=== PATIENT | female | born 1990 ===

== ENCOUNTER 2017-02-19 13:21 | Inpatient (IN) | payer OTHER ==
[2016-03-26 16:42] VITALS: BMI 27.0
[2017-02-19] MEDS ORDERED: Lactated Ringer's 1,000 ML IV SCH ×2 (13:45→14:00)
[2017-02-19] MEDS ORDERED: Penicillin G Potassium 5 MU in Dextrose 5% In Water 50 ML IV STA (14:18)
[2017-02-19] MEDS ORDERED: Penicillin G 5 Million Unit Vial IVPB ONE (14:21)
--- NOTE | 2017-02-19 14:24 | OBHP ---
Datetime: 02/19/2017 13:42 IP Adm Impression: Term, intrauterine ; Active labor; Intact Membranes IP Admit Plan: Admit to unit; Initiate labor protocol Admit Comment, IP Provider: at 38+weeks came with c/o ctxs started last night, q5 min , 06/22,no vb, lof,+fm obhx 1 x pmh den med pnv psh inguinal hernia soh denies ve 2-/-2 a/p at 38+weeks in labor admit to l_d npo/ivf cont eileen and efm pain manageme anticipate Pelvic Type - PN: Adequate Extremities - PN: Normal Abdomen - PN: Normal Back - PN: Normal Breast - PN: Normal Lungs - PN: Normal Heart - PN: Normal Thyroid - PN: Normal Neurologic - PN: Normal HEENT - PN: Normal General - PN: Normal FHR - Baseline A Provider: 120 Contraction Comments Provider: q1-4 Comments, ACOG Physical Exam: gravid,non tender ve /-2 IP Hx Assessment: The History has been Reviewed and is Current EGA AdmitDate IP: 38.5 Vital Signs Provider: Reviewed; Within Normal Limits IP Chief Complaint: Uterine contractions NICHD Variability Prov Fetus A: Moderate 6-25bpm NICHD Accel Fetus A IP Provider: 15X15 FHR Category Provider Fetus A: Category I Dilatation, Provider: 3 Effacement, Provider: 70 Station, Provider: -2 Genitourinary Exam: Normal DTRs - PN: Normal
[2017-02-19 14:52] LABS: BASO % 0.3 % (0.0-2.0); EOS % 0.3 % (0.0-4.0); LYMPH % 28.2 % (20.0-40.0); MEAN CELL VOLUME 82.3 fL (81.0-99.0); MEAN CORPUSCULAR HEMOGLOBIN 26.1 pg (27.0-31.0); MEAN CORPUSCULAR HGB CONC 31.7 g/dL (33.0-37.0); MONO # 0.7 K/uL (0.0-0.8); MONO % 6.5 % (0.0-10.0); RED CELL DISTRIBUTION WIDTH 14.8 % (11.5-14.5); WHITE BLOOD COUNT 10.6 K/uL (4.8-10.8)
[2017-02-19 15:05] LABS: URINE BACTERIA RARE (<OCC); URINE BILIRUBIN NEGATIVE (NEGATIVE); URINE BLOOD NEGATIVE (NEGATIVE); URINE COLOR Yellow (YELLOW); URINE GLUCOSE (UA) NORMAL (Normal); URINE KETONE 1+ mg/dL (NEGATIVE); URINE LEUKOCYTE ESTERASE NEG Leu/uL (Negative); URINE PROTEIN NEGATIVE (NEGATIVE); URINE UROBILINOGEN NORMAL mg/dL (0.2-1.0); WBC URINE 3 /hpf (0-5)
[2017-02-19] MEDS ORDERED: Oxytocin 20 units in LR 2,000 ML IV ONE (15:17)
[2017-02-19] MEDS ORDERED: Lidocaine 2% Inj (20ml) ONE (15:18)
[2017-02-19 15:19] LABS: ALKALINE PHOSPHATASE 202 U/L (38-126); ALT/SGPT 24 U/L (9-52); AST/SGOT 19 U/L (14-36); BILIRUBIN,TOTAL 0.8 mg/dL (0.2-1.3); BLOOD UREA NITROGEN 3 mg/dL (7-17); CALCIUM 8.8 mg/dl (8.6-10.4); CARBON DIOXIDE 18 mmol/L (22-30); CHLORIDE 104 mmol/L (98-107); GFR AFRICAN-AMERICAN > 60; GLUCOSE,RANDOM 70 mg/dL (65-105); POTASSIUM 3.5 mmol/L (3.6-5.2); SODIUM 133 mmol/L (132-148); TOTAL PROTEIN 6.9 g/dL (6.3-8.3)
--- NOTE | 2017-02-19 15:32 | OBPN ---
Datetime: 02/19/2017 15:29 IP Procedures Other: srom IP Progress Impression: Normal progression of labor IP Procedures: Sterile Vag Exam IP Progress Plan: Continue present management Contraction Comments Provider: q1-4 FHR - Baseline A Provider: 130 IP Progress Note Comment: pt was examined at bed side ve fd/100/0 srom clear anticupate Vital Signs Provider: Reviewed; Within Normal Limits NICHD Accel Fetus A IP Provider: 15X15 FHR Category Provider Fetus A: Category I NICHD Variability Prov Fetus A: Moderate 6-25bpm Dilatation, Provider: 10 Effacement, Provider: 100 Station, Provider: 0 Datetime: 02/19/2017 13:42 IP Informed Consent Obtain: Vaginal Delivery
--- NOTE | 2017-02-19 15:34 | OBDS ---
MATERNAL INFORMATION Estimated Blood Loss (ml): 300 Provider Comments: baby delived in peace. endometrum clean no com meconium light no com LABOR SUMMARY EDC: 02/28/2017 00:00 VAGINAL DELIVERY Laceration Extension: First Degree Laceration Type: Perineal Laceration Repair Note: repaired Sponge Count Correct: Yes Sharps Count Correct: Yes BABY A INFORMATION Forceps: N/A Vacuum Extraction: N/A Shoulder Dystocia : No PRESENTATION/POSITION BABY A Presentation: Cephalic Cephalic Presentation: Vertex Vertex Position: Left Occipital Anterior Breech Presentation: N/A CORD INFORMATION BABY A Nuchal Cord : N/A
[2017-02-19] MEDS ORDERED: OXYTOCIN IV SCH (15:45)
[2017-02-19] MEDS ORDERED: Oxycodone/Acetaminophen 5/325 mg Tab ONE (15:58)
[2017-02-19] MEDS: Oxycodone/Acetaminophen 5/325 mg Tab PO PRN (15:58)
[2017-02-20 06:40] LABS: MEAN CELL VOLUME 81.5 fL (81.0-99.0); MEAN CORPUSCULAR HEMOGLOBIN 26.1 pg (27.0-31.0); MEAN CORPUSCULAR HGB CONC 32.1 g/dL (33.0-37.0); RED CELL DISTRIBUTION WIDTH 15.1 % (11.5-14.5); WHITE BLOOD COUNT 10.8 K/uL (4.8-10.8)
[2017-02-20 06:52] LABS: CHLORIDE 101 mmol/L (98-107); SODIUM 130 mmol/L (132-148)
[2017-02-20 06:53] LABS: POTASSIUM 3.7 mmol/L (3.6-5.2)
[2017-02-20 06:55] LABS: ALB/GLOB RATIO 0.8 (1.0-2.1); ALKALINE PHOSPHATASE 122 U/L (38-126); ALT/SGPT 22 U/L (9-52); AST/SGOT 19 U/L (14-36); BILIRUBIN,TOTAL 0.4 mg/dL (0.2-1.3); BLOOD UREA NITROGEN 7 mg/dL (7-17); CARBON DIOXIDE 26 mmol/L (22-30); GFR AFRICAN-AMERICAN > 60; GLUCOSE,RANDOM 84 mg/dL (65-105); TOTAL PROTEIN 5.1 g/dL (6.3-8.3)
[2017-02-20 06:56] LABS: CALCIUM 8.8 mg/dl (8.6-10.4)
--- NOTE | 2017-02-20 11:31 | OBPPN ---
Datetime: 02/20/2017 11:11 PP Pain Prov: Within normal limits PP Nausea Prov: Denies PP Flatus Prov: Yes PP BM Prov: Yes PP Heart Prov: Normal PP Lungs Prov: Normal PP Abdomen/Uterus Prov: Normal PP Lochia Prov: Normal PP Vulva/Perineum Prov: Normal PP CVA Tenderness Prov: Normal PP Extremities Prov: Normal PP C/S Incision Prov: Not Applicable PP Progress Prov: Normal PP Impression Prov: Normal progression PP Plan Prov: Continue present management PP Progress Note Prov: S-patient states that her pain is well controlled.she is tolerating regular d iet.ambulating and voiding without difficulty.passing faltus O-VSS afebrile Fundus firm and below umbilicus Extremities no calf tenderness A/P Patient s/p vaginal delivery ppd 1 doing well -continue routine post care Vital Signs Provider PP: Reviewed
[2017-02-20] MEDS: Oxycodone/Acetaminophen 5/325 mg Tab PO PRN (21:28)
[2017-02-21 00:06] VITALS: BP 121/72; PULSE 92; RESP 20; TEMP 97; O2SAT 100
[2017-02-21 08:39] LABS: BASO # 0.1 K/uL (0.0-0.2); BASO % 0.7 % (0.0-2.0); EOS # 0.1 K/uL (0.0-0.7); HEMATOCRIT 29.7 % (34.0-47.0); LYMPH # 2.8 K/uL (1.0-4.3); LYMPH % 29.6 % (20.0-40.0); MEAN CELL VOLUME 82.3 fL (81.0-99.0); MEAN CORPUSCULAR HEMOGLOBIN 25.9 pg (27.0-31.0); MEAN CORPUSCULAR HGB CONC 31.5 g/dL (33.0-37.0); MEAN PLATELET VOLUME 9.6 fL (7.2-11.7); MONO # 0.5 K/uL (0.0-0.8); MONO % 5.5 % (0.0-10.0); RED CELL DISTRIBUTION WIDTH 15.1 % (11.5-14.5); WHITE BLOOD COUNT 9.4 K/uL (4.8-10.8)
--- NOTE | 2017-02-21 09:58 | CP.PCM.DIS ---
<Jon Manuel - Last Filed: 02/21/17 09:52> Provider - Provider Date of Admission: 02/19/17 13:43 Attending physician: Geoff Dhillon MD Time Spent in preparation of Discharge (in minutes): 40 Diagnosis - Discharge Diagnosis (1) Normal vaginal delivery Status: Resolved (2) Status: Resolved Hospital Course - Lab Results Lab Results: Most Recent Lab Values WBC 9.4 K/uL (4.8-10.8) 02/21/17 08:32 RBC 3.62 Mil/uL (3.80-5.20) L 02/21/17 08:32 Hgb 9.4 g/dL (11.0-16.0) L 02/21/17 08:32 Hct 29.7 % (34.0-47.0) L 02/21/17 08:32 MCV 82.3 fL (81.0-99.0) 02/21/17 08:32 MCH 25.9 pg (27.0-31.0) L 02/21/17 08:32 MCHC 31.5 g/dL (33.0-37.0) L 02/21/17 08:32 RDW 15.1 % (11.5-14.5) H 02/21/17 08:32 Plt Count 220 K/uL (130-400) 02/21/17 08:32 MPV 9.6 fL (7.2-11.7) 02/21/17 08:32 Neut % (Auto) 63.2 % (50.0-75.0) 02/21/17 08:32 Lymph % (Auto) 29.6 % (20.0-40.0) 02/21/17 08:32 Jerome % (Auto) 5.5 % (0.0-10.0) 02/21/17 08:32 Eos % (Auto) 1.0 % (0.0-4.0) 02/21/17 08:32 Baso % (Auto) 0.7 % (0.0-2.0) 02/21/17 08:32 Neut # 6.0 K/uL (1.8-7.0) 02/21/17 08:32 Lymph # 2.8 K/uL (1.0-4.3) 02/21/17 08:32 Jerome # 0.5 K/uL (0.0-0.8) 02/21/17 08:32 Eos # 0.1 K/uL (0.0-0.7) 02/21/17 08:32 Baso # 0.1 K/uL (0.0-0.2) 02/21/17 08:32 Sodium 130 mmol/L (132-148) L 02/20/17 06:22 Potassium 3.7 mmol/L (3.6-5.2) 02/20/17 06:22 Chloride 101 mmol/L (98-107) 02/20/17 06:22 Carbon Dioxide 26 mmol/L (22-30) 02/20/17 06:22 Anion Gap 7 (10-20) L 02/20/17 06:22 BUN 7 mg/dL (7-17) 02/20/17 06:22 Creatinine 0.5 MG/DL (0.7-1.2) L 02/20/17 06:22 Est GFR ( Amer) > 60 02/20/17 06:22 Est GFR (Non-Af Amer) > 60 02/20/17 06:22 Random Glucose 84 mg/dL (65-105) 02/20/17 06:22 Calcium 8.8 mg/dl (8.6-10.4) 02/20/17 06:22 Total Bilirubin 0.4 mg/dL (0.2-1.3) 02/20/17 06:22 AST 19 U/L (14-36) 02/20/17 06:22 ALT 22 U/L (9-52) 02/20/17 06:22 Alkaline Phosphatase 122 U/L (38-126) 02/20/17 06:22 Total Protein 5.1 g/dL (6.3-8.3) L 02/20/17 06:22 Albumin 2.3 g/dL (3.5-5.0) L D 02/20/17 06:22 Globulin 2.8 gm/dL (2.2-3.9) 02/20/17 06:22 Albumin/Globulin Ratio 0.8 (1.0-2.1) L 02/20/17 06:22 Urine Color Yellow (YELLOW) 02/19/17 14:44 Urine Clarity Clear (Clear) 02/19/17 14:44 Urine pH 6.0 (5.0-8.0) 02/19/17 14:44 Ur Specific [place] 1.009 (1.003-1.030) 02/19/17 14:44 Urine Protein Negative mg/dL (NEGATIVE) 02/19/17 14:44 Urine Glucose (UA) Normal mg/dL (Normal) 02/19/17 14:44 Urine Ketones 1+ mg/dL (NEGATIVE) H 02/19/17 14:44 Urine Blood Negative (NEGATIVE) 02/19/17 14:44 Urine Nitrate Negative (NEGATIVE) 02/19/17 14:44 Urine Bilirubin Negative (NEGATIVE) 02/19/17 14:44 Urine Urobilinogen Normal mg/dL (0.2-1.0) 02/19/17 14:44 Ur Leukocyte Esterase Neg Pedro/uL (Negative) 02/19/17 14:44 Urine WBC (Auto) 3 /hpf (0-5) 02/19/17 14:44 Ur Squamous Epith Cells 2 /hpf (0-5) 02/19/17 14:44 Urine Bacteria Rare (<OCC) 02/19/17 14:44 Urine Opiates Screen Negative (NEGATIVE) 02/19/17 16:11 Urine Methadone Screen Negative (NEGATIVE) 02/19/17 16:11 Ur Barbiturates Screen Negative (NEGATIVE) 02/19/17 16:11 Ur Phencyclidine Scrn Negative (NEGATIVE) 02/19/17 16:11 Ur Amphetamines Screen Negative (NEGATIVE) 02/19/17 16:11 U Benzodiazepines Scrn Negative (NEGATIVE) 02/19/17 16:11 U Oth Cocaine Metabols Negative (NEGATIVE) 02/19/17 16:11 U Cannabinoids Screen Negative (NEGATIVE) 02/19/17 16:11 RPR Nonreactive (NONREACTIVE) 02/19/17 15:34 HIV 1&2 Antibody Screen Negative (NEGATIVE) 02/19/17 14:44 Blood Type B POSITIVE 02/19/17 14:44 Antibody Screen Negative 02/19/17 14:44 - Hospital Course Hospital Course: This is a 26 year old female who presented at 38+ weeks gestation with contractions every 5 minutes. The patient delivered a baby girl on 02/19/17. The mother tolerated the delivery well and her pain is controlled post delivery day 2. The patient has breast fed her child to this point. The patient is mildly anemic on her AM CBC, however improved from previous day. Scripts for vitamins and iron supplementation have been provided on discharge. The patient progressed will during the post delivery time period. The discharge plan and follow ups were extensively discussed with the patient who verbalized complete understanding and agreement with the plan and follow up plan. The patient's medical condition was also discussed and complete understanding was again verbalized. At this time, after discussion of all issues , the patient was deemed medically fit for discharge - Date & Time of H&P Date of H&P: 02/19/17 Time of H&P: 14:26 Discharge Exam - Head Exam Head Exam: ATRAUMATIC, NORMAL INSPECTION, NORMOCEPHALIC - Eye Exam Eye Exam: EOMI, Normal appearance Pupil Exam: NORMAL ACCOMODATION - ENT Exam ENT Exam: Mucous Membranes Moist - Neck Exam Neck exam: Full Rom, Normal Inspection - Respiratory Exam Respiratory Exam: Clear to PA & Lateral, NORMAL BREATHING PATTERN. absent: Decreased Breath Sounds, Rales, Rhonchi, Wheezes, Respiratory Distress, Stridor - Cardiovascular Exam Cardiovascular Exam: REGULAR RHYTHM, RRR, +S1, +S2. absent: Diastolic murmur, Systolic Murmur - GI/Abdominal Exam GI & Abdominal Exam: Normal Bowel Sounds, Soft, Tenderness. absent: Distended, Guarding Additional comments: Uterine Fundus 3FB below the umbilicus - Extremities Exam Extremities exam: normal capillary refill, normal inspection, pedal pulses present - Neurological Exam Neurological exam: Alert, CN II-XII Intact, Normal Gait, Oriented x3 - Skin Skin Exam: Dry, Intact, Normal Color, Warm Discharge Plan - Discharge Medications Prescriptions: Docusate Sodium/Ferrous Fumara [Kimo-Sequels 100 mg -150 mg] 1 tab PO DAILY # 40 tab oxyCODONE/Acetaminophen [Percocet 5/325 mg Tab] 1 tab PO DAILY #4 tab Vit No.124/Iron/Folic [ Vitamin Tablet] 1 each PO DAILY #40 tablet - Follow Up Plan Condition: GOOD Disposition: HOME/ ROUTINE Patient education suggested?: Yes Instructions: Iron Supplements (By mouth), Vitamins (By mouth), Perineal Care (DC), Caring for Your Baby (DC), Bleeding ( DC), Vaginal Delivery (GEN), Your [place]'s Appearance (DC) Additional Instructions: 1.) Please take iron supplementation daily 2.) Please take vitamin daily 3.) Follow up with OBGYN 4.) Follow up with PMD 5.) If concerning symptoms occur, please return to the ED for evaluation <Orin Garcia Sima - Last Filed: 02/26/17 11:16> Provider - Provider Date of Admission: 02/19/17 13:43 Attending physician: Geoff Dhillon MD Hospital Course - Lab Results Lab Results: Most Recent Lab Values WBC 9.4 K/uL (4.8-10.8) 02/21/17 08:32 RBC 3.62 Mil/uL (3.80-5.20) L 02/21/17 08:32 Hgb 9.4 g/dL (11.0-16.0) L 02/21/17 08:32 Hct 29.7 % (34.0-47.0) L 02/21/17 08:32 MCV 82.3 fL (81.0-99.0) 02/21/17 08:32 MCH 25.9 pg (27.0-31.0) L 02/21/17 08:32 MCHC 31.5 g/dL (33.0-37.0) L 02/21/17 08:32 RDW 15.1 % (11.5-14.5) H 02/21/17 08:32 Plt Count 220 K/uL (130-400) 02/21/17 08:32 MPV 9.6 fL (7.2-11.7) 02/21/17 08:32 Neut % (Auto) 63.2 % (50.0-75.0) 02/21/17 08:32 Lymph % (Auto) 29.6 % (20.0-40.0) 02/21/17 08:32 Jerome % (Auto) 5.5 % (0.0-10.0) 02/21/17 08:32 Eos % (Auto) 1.0 % (0.0-4.0) 02/21/17 08:32 Baso % (Auto) 0.7 % (0.0-2.0) 02/21/17 08:32 Neut # 6.0 K/uL (1.8-7.0) 02/21/17 08:32 Lymph # 2.8 K/uL (1.0-4.3) 02/21/17 08:32 Jerome # 0.5 K/uL (0.0-0.8) 02/21/17 08:32 Eos # 0.1 K/uL (0.0-0.7) 02/21/17 08:32 Baso # 0.1 K/uL (0.0-0.2) 02/21/17 08:32 Sodium 130 mmol/L (132-148) L 02/20/17 06:22 Potassium 3.7 mmol/L (3.6-5.2) 02/20/17 06:22 Chloride 101 mmol/L (98-107) 02/20/17 06:22 Carbon Dioxide 26 mmol/L (22-30) 02/20/17 06:22 Anion Gap 7 (10-20) L 02/20/17 06:22 BUN 7 mg/dL (7-17) 02/20/17 06:22 Creatinine 0.5 MG/DL (0.7-1.2) L 02/20/17 06:22 Est GFR ( Amer) > 60 02/20/17 06:22 Est GFR (Non-Af Amer) > 60 02/20/17 06:22 Random Glucose 84 mg/dL (65-105) 02/20/17 06:22 Calcium 8.8 mg/dl (8.6-10.4) 02/20/17 06:22 Total Bilirubin 0.4 mg/dL (0.2-1.3) 02/20/17 06:22 AST 19 U/L (14-36) 02/20/17 06:22 ALT 22 U/L (9-52) 02/20/17 06:22 Alkaline Phosphatase 122 U/L (38-126) 02/20/17 06:22 Total Protein 5.1 g/dL (6.3-8.3) L 02/20/17 06:22 Albumin 2.3 g/dL (3.5-5.0) L D 02/20/17 06:22 Globulin 2.8 gm/dL (2.2-3.9) 02/20/17 06:22 Albumin/Globulin Ratio 0.8 (1.0-2.1) L 02/20/17 06:22 Urine Color Yellow (YELLOW) 02/19/17 14:44 Urine Clarity Clear (Clear) 02/19/17 14:44 Urine pH 6.0 (5.0-8.0) 02/19/17 14:44 Ur Specific [place] 1.009 (1.003-1.030) 02/19/17 14:44 Urine Protein Negative mg/dL (NEGATIVE) 02/19/17 14:44 Urine Glucose (UA) Normal mg/dL (Normal) 02/19/17 14:44 Urine Ketones 1+ mg/dL (NEGATIVE) H 02/19/17 14:44 Urine Blood Negative (NEGATIVE) 02/19/17 14:44 Urine Nitrate Negative (NEGATIVE) 02/19/17 14:44 Urine Bilirubin Negative (NEGATIVE) 02/19/17 14:44 Urine Urobilinogen Normal mg/dL (0.2-1.0) 02/19/17 14:44 Ur Leukocyte Esterase Neg Pedro/uL (Negative) 02/19/17 14:44 Urine WBC (Auto) 3 /hpf (0-5) 02/19/17 14:44 Ur Squamous Epith Cells 2 /hpf (0-5) 02/19/17 14:44 Urine Bacteria Rare (<OCC) 02/19/17 14:44 Urine Opiates Screen Negative (NEGATIVE) 02/19/17 16:11 Urine Methadone Screen Negative (NEGATIVE) 02/19/17 16:11 Ur Barbiturates Screen Negative (NEGATIVE) 02/19/17 16:11 Ur Phencyclidine Scrn Negative (NEGATIVE) 02/19/17 16:11 Ur Amphetamines Screen Negative (NEGATIVE) 02/19/17 16:11 U Benzodiazepines Scrn Negative (NEGATIVE) 02/19/17 16:11 U Oth Cocaine Metabols Negative (NEGATIVE) 02/19/17 16:11 U Cannabinoids Screen Negative (NEGATIVE) 02/19/17 16:11 RPR Nonreactive (NONREACTIVE) 02/19/17 15:34 HIV 1&2 Antibody Screen Negative (NEGATIVE) 02/19/17 14:44 Blood Type B POSITIVE 02/19/17 14:44 Antibody Screen Negative 02/19/17 14:44 Attending/Attestation - Attestation I have personally seen and examined this patient.: Yes I have fully participated in the care of the patient.: Yes I have reviewed all pertinent clinical information, including history, physical exam and plan: Yes
--- NOTE | 2017-02-21 22:27 | OBPPN ---
Datetime: 02/21/2017 22:01 PP Pain Prov: Within normal limits PP Nausea Prov: Denies PP Flatus Prov: Yes PP BM Prov: No PP Breasts Prov: Normal PP Heart Prov: Normal PP Lungs Prov: Normal PP Abdomen/Uterus Prov: Normal PP Lochia Prov: Normal PP Vulva/Perineum Prov: Not Done PP CVA Tenderness Prov: Normal PP Extremities Prov: Normal PP C/S Incision Prov: Not Applicable PP Progress Prov: Normal PP Comments Phys Exam Prov: Skin: warm, dry, intact Abdomen: Obese. Soft, non tender. Fundus firm, 18 weeks, mobile. Mild lochia rubra Extremities: no calf tenderness. Full ORM All other systems reviewed and are negative PP Impression Prov: Normal progression PP Plan Prov: Discharge PP Progress Note Prov: Patient was seen and evalauted approximately 080 0hors; received in room 455; . Reports uterine cramps. Denies nausea, vomiting, chest pain, palpitations, SOB. P.E.: as above. Obese, in NAD. Awake, alert, oriented to time, person and place - PPD#1 H/H 8.3/26. Rh(+) Assessment: PPD#2, 26 yo P2, S/P . Anemia - asymptomatic; hemodynamically stable. Desires IUD f or contraception. Clinically stable. Plan: 1) CBC now 2) Anticipate Discharge home, after CBC resulted Addendum: - H/H 9.4/29.7 Impression: stable and improved H/H. Patient is clinically stable Plan: 1) discharge home 2) See full discharge instructions Vital Signs Provider PP: Reviewed
--- NOTE | 2017-02-21 22:38 | OBDCSUM ---
Datetime: 02/21/2017 12:21 Discharged to, Provider: Home Follow up at, Provider: [facility] Disch Instr Activity: Normal activity; May be up to bathroom; May be up for meals; May Shower Disch Instr Diet: Regular Discharge Diagnosis, Provider: Term Delivered Discharge Time: 02/21/2017 14:00 Follow up in weeks, Provider: 03/04/17 Contraception discussed, Prov: Yes Disch Activity Restrictions: No exercising; No lifting; No driving; No sexual activity; Nothing in v agina - Jenkins, tampons, douche Discharge Diagnosis Prov Other: Anemia Contraception counselling Contraception after Delivery: IUD
== END 2017-02-21 15:45 | disposition home or self-care (01) | DRG 373 ==
LOC: C.EROB 13:21 → C.4D 13:43 → C.4M 18:06
PROVIDERS: ADMIT Obstetrics & Gynecology; ATTEND Obstetrics & Gynecology
PROC: 0HQ9XZZ Repair Perineum Skin, External Approach (ICD-10-PCS; principal; 2017-02-19)
PROC: 10E0XZZ Delivery of Products of Conception, External Approach (ICD-10-PCS; 2017-02-19)
DX: O99.02 Anemia complicating childbirth (principal); D64.89 Other specified anemias; O70.0 First degree perineal laceration during delivery; Z3A.38 38 weeks gestation of pregnancy; Z37.0 Single live birth

== ENCOUNTER 2017-10-13 22:03 | Emergency (ER) | payer SELFPAY ==
[2017-10-13 22:03] VITALS: BMI 27.0
[2017-10-13 22:19] VITALS: TEMP 98.6
--- NOTE | 2017-10-13 23:20 | C.PDOC ---
History Of Present Illness 27 year old female, whose PMHx includes recurrent tonsillitis, presents to the ED for evaluation of a possible infection. Patient has noted white patches to her bilateral tonsils for the past week. She denies fever, chills, cough, difficulty breathing. Time Seen by Provider: 10/13/17 22:37 Chief Complaint (Nursing): ENT Problem History Per: Patient History/Exam Limitations: None Onset/Duration Of Symptoms: Days (1 week) Current Symptoms Are (Timing): Still Present Past Medical History Reviewed: Historical Data, Nursing Documentation, Vital Signs Vital Signs: Last Vital Signs Temp 98.6 F 10/13/17 22:12 Pulse 75 10/13/17 23:29 Resp 18 10/13/17 23:29 BP 124/71 10/13/17 23:29 Pulse Ox 98 10/14/17 01:18 - Medical History PMH: No Chronic Diseases Surgical History: No Surg Hx - [facility] Procedures DELIVERY OF PRODUCTS OF CONCEPTION, EXTERNAL APPROACH (02/19/17) DIVISION OF FEMALE PERINEUM, EXTERNAL APPROACH (08/08/15) INTRODUCTION OF SERUM/TOX/VACCINE INTO MUSCLE, PERC APPROACH (08/08/15) REPAIR PERINEUM MUSCLE, OPEN APPROACH (08/08/15) REPAIR PERINEUM SKIN, EXTERNAL APPROACH (02/19/17) Family History: States: Unknown Family Hx - Social History Hx Tobacco Use: No Hx Alcohol Use: No Hx Substance Use: No - Immunization History Hx Tetanus Toxoid Vaccination: No Hx Influenza Vaccination: Yes Hx Pneumococcal Vaccination: No Review Of Systems Constitutional: Negative for: Fever, Chills ENT: Positive for: Other (white patches on tonsils ) Respiratory: Negative for: Cough, Other (difficulty breathing ) Physical Exam - Physical Exam Appears: Non-toxic, No Acute Distress Skin: Normal Color, Warm, Dry Head: Atraumatic, Normacephalic Eye(s): bilateral: Normal Inspection Ear(s): Bilateral: Normal Nose: Normal, No Discharge Oral Mucosa: Moist Throat: No Erythema, Exudate (bilateral, tonsillar) Neck: Supple Chest: Symmetrical, No Deformity, No Tenderness Cardiovascular: Rhythm Regular, No Murmur Respiratory: Normal Breath Sounds, No Rales, No Rhonchi, No Wheezing Neurological/Psych: Oriented x3, Normal Speech, Normal Cognition ED Course And Treatment O2 Sat by Pulse Oximetry: 98 (on RA) Pulse Ox Interpretation: Normal Progress Note: On reassessment, patient is resting comfortably, remains afebrile and is showing no signs of distress. Patient is stable for discharge and is advised to follow up with her PMD within 1-2 days for further evaluation and/or return to the ED if symptoms persist or worsen. Disposition Counseled Patient/Family Regarding: Diagnosis, Need For Followup, Rx Given - Disposition Disposition: HOME/ ROUTINE Disposition Time: 23:17 Condition: STABLE Additional Instructions: Please follow up with MD Increase PO fluids Gargle with salt water Return to ER if worse Prescriptions: Ibuprofen [Motrin] 600 mg PO Q6H #20 tab Penicillin VK [Penicillin VK Tab] 500 mg PO Q6H #28 tab Instructions: Tonsillitis (ED) Forms: [employer] [facility] ([place]ian), Work Excuse - Clinical Impression Clinical Impression: Exudative tonsillitis - PA / COMPLIANCE CLERK / Resident Statement MD/DO has reviewed & agrees with the documentation as recorded. - Scribe Statement The provider has reviewed the documentation as recorded by the Scribe (Faby Gil) All medical record entries made by the Scribe were at my direction and personally dictated by me. I have reviewed the chart and agree that the record accurately reflects my personal performance of the history, physical exam, medical decision making, and the department course for this patient. I have also personally directed, reviewed, and agree with the discharge instructions and disposition.
[2017-10-13 23:33] VITALS: BP 124/71; PULSE 75; RESP 18
[2017-10-14 01:15] VITALS: O2SAT 98
== END 2017-10-13 23:58 | disposition home or self-care (01) ==
LOC: C.ER 22:03
DX: J03.90 Acute tonsillitis, unspecified (principal)

== ENCOUNTER 2017-11-27 19:28 | Emergency (ER) | payer SELFPAY ==
[2017-11-27 19:29] VITALS: BMI 27.0
[2017-11-27 20:33] VITALS: BP 140/83; PULSE 87; RESP 20; TEMP 98.6; O2SAT 100
--- NOTE | 2017-11-27 20:58 | C.PDOC ---
History Of Present Illness 27 year old female presents to ED with complaints of cough, congestion, sore throat for 3 days and today has bodyaches. She denies fever, chest pain, SOB, abdominal pain, urinary symptoms. Time Seen by Provider: 11/27/17 20:44 Chief Complaint (Nursing): Flu-like Symptoms History Per: Patient History/Exam Limitations: no limitations Onset/Duration Of Symptoms: Days (3) Current Symptoms Are (Timing): Still Present Location Of Pain: Throat, Diffuse Myalgias Sick Contacts (Context): Individual(s) At Work Associated Symptoms: Sore Throat, Cough. denies: Sputum Past Medical History Reviewed: Historical Data, Nursing Documentation, Vital Signs Vital Signs: Last Vital Signs Temp 98.6 F 11/27/17 20:30 Pulse 87 11/27/17 20:30 Resp 20 11/27/17 21:16 BP 140/83 11/27/17 20:30 Pulse Ox 100 11/27/17 21:01 - Medical History PMH: No Chronic Diseases Surgical History: No Surg Hx - [facility] Procedures DELIVERY OF PRODUCTS OF CONCEPTION, EXTERNAL APPROACH (02/19/17) DIVISION OF FEMALE PERINEUM, EXTERNAL APPROACH (08/08/15) INTRODUCTION OF SERUM/TOX/VACCINE INTO MUSCLE, PERC APPROACH (08/08/15) REPAIR PERINEUM MUSCLE, OPEN APPROACH (08/08/15) REPAIR PERINEUM SKIN, EXTERNAL APPROACH (02/19/17) Family History: States: Unknown Family Hx - Social History Hx Tobacco Use: No Hx Alcohol Use: No Hx Substance Use: No - Immunization History Hx Tetanus Toxoid Vaccination: No Hx Influenza Vaccination: Yes Hx Pneumococcal Vaccination: No Review Of Systems Constitutional: Positive for: Fever. Negative for: Malaise Eyes: Negative for: Redness ENT: Positive for: Throat Pain. Negative for: Ear Pain Cardiovascular: Negative for: Chest Pain Respiratory: Positive for: Cough. Negative for: Sputum Gastrointestinal: Negative for: Abdominal Pain Genitourinary: Negative for: Dysuria Neurological: Negative for: Headache, Dizziness Physical Exam - Physical Exam Appears: Well, Non-toxic, No Acute Distress Skin: Warm, Dry, No Rash Head: Atraumatic, Normacephalic Eye(s): bilateral: Normal Inspection, EOMI Ear(s): Bilateral: Normal (no erythema) Nose: Normal, No Flaring Oral Mucosa: Moist Throat: Erythema (mild erythema to posterior pharynx), No Exudate, No Drooling, No Mass Neck: Normal ROM Lymphatic: Normal Exam, No Adenopathy Chest: Symmetrical Cardiovascular: Rhythm Regular Respiratory: Normal Breath Sounds Extremity: Bilateral: Atraumatic, Normal ROM Neurological/Psych: Oriented x3, Normal Speech Gait: Steady ED Course And Treatment O2 Sat by Pulse Oximetry: 100 (room air) Pulse Ox Interpretation: Normal Medical Decision Making Medical Decision Making: Patient with multi-symptom complaints, likely viral. Patient states she had Flu vaccine this season. She is out of time frame for medication. Patient appears non-toxic and in no distress. No clinical signs of meningitis, pneumonia or dehydration. Rx given. Patient advised to rest, drink fluids and take medications for supportive treatment. Patient stable for discharge and given follow up instructions. Disposition Counseled Patient/Family Regarding: Diagnosis, Need For Followup, Rx Given - Disposition Referrals: [facility] [Outside] [facility] [Outside] Disposition: HOME/ ROUTINE Disposition Time: 21:15 Condition: GOOD Additional Instructions: You have viral upper respiratory infection. Take Tylenol or Motrin alternating every 4-6 hours for Fever 100.4F or higher. Rest and drink plenty of fluids. May use cool mist humidifier or vaporizer in room. Try taking over the counter antihistamine (Claritin, Meka, Zyrtec), Decongestant or Cough medicine as needed every 6-8 hours. Follow up with your primary medical doctor or clinic in 1 week for further evaluation. Prescriptions: Benzocaine/Menthol [Cepacol Sore Throat] 1 davy MM Q2 #30 davy Benzonatate [Tessalon Perles] 100 mg PO TID #30 sgl Instructions: Viral Upper Respiratory Infection, Adult (DC) Forms: [facility] (Surinamese), Work Excuse - POA Present On Arrival: None - Clinical Impression Clinical Impression: Influenza-like illness, Upper respiratory infection
== END 2017-11-27 21:15 | disposition home or self-care (01) ==
LOC: C.ER 19:28
DX: J11.1 Influenza due to unidentified influenza virus with other respiratory manifestations (principal)

== ENCOUNTER 2018-06-17 11:29 | Emergency (ER) | payer SELFPAY ==
[2018-06-17 11:56] VITALS: BMI 32.3
[2018-06-17 11:59] VITALS: BP 113/78; PULSE 95; RESP 16; TEMP 98.6; O2SAT 100
--- NOTE | 2018-06-17 12:13 | C.PDOC ---
History Of Present Illness 28 y/o female presents to the ER complaining of pain to the left side of her face near her ear for the past 4 days. She reports the pain is dull and worsened when she opens her mouth or chews. She states she felt a click to area few days ago. She thought it was her tooth but her teeth only hurt when she chews or closes mouth tightly. She denies any fever, ear pain, throat pain, bleeding gums or other complaints. Time Seen by Provider: 06/17/18 12:03 Chief Complaint (Nursing): ENT Problem History Per: Patient History/Exam Limitations: no limitations Onset/Duration Of Symptoms: Days Current Symptoms Are (Timing): Still Present Severity: Moderate Past Medical History Reviewed: Historical Data, Nursing Documentation, Vital Signs Vital Signs: Last Vital Signs Temp 98.6 F 06/17/18 11:56 Pulse 95 H 06/17/18 11:56 Resp 16 06/17/18 11:56 BP 113/78 06/17/18 11:56 Pulse Ox 100 06/17/18 15:05 - Medical History PMH: No Chronic Diseases Other Surgeries: Hx of surgeries - [facility] Procedures DELIVERY OF PRODUCTS OF CONCEPTION, EXTERNAL APPROACH (02/19/17) DIVISION OF FEMALE PERINEUM, EXTERNAL APPROACH (08/08/15) INTRODUCTION OF SERUM/TOX/VACCINE INTO MUSCLE, PERC APPROACH (08/08/15) REPAIR PERINEUM MUSCLE, OPEN APPROACH (08/08/15) REPAIR PERINEUM SKIN, EXTERNAL APPROACH (02/19/17) Family History: States: No Known Family Hx - Social History Hx Tobacco Use: No Hx Alcohol Use: No Hx Substance Use: No - Immunization History Hx Tetanus Toxoid Vaccination: No Hx Influenza Vaccination: Yes Hx Pneumococcal Vaccination: No Review Of Systems Except As Marked, All Systems Reviewed And Found Negative. Constitutional: Negative for: Fever, Chills ENT: Negative for: Ear Pain, Throat Pain Neurological: Positive for: Other (facial pain) Physical Exam - Physical Exam Appears: Non-toxic, No Acute Distress Skin: Normal Color, Warm, Dry Head: Atraumatic, Normacephalic Eye(s): bilateral: Normal Inspection, EOMI Ear(s): Bilateral: Normal (no erythema, swelling) Nose: Normal Oral Mucosa: Moist, No Trismus, Other (Left TMJ: mildly tender, no audible click , no crepitus) Tongue: Normal Appearing, No Swelling Lips: Normal Appearing, No Swelling Teeth: Caries (some caries), No Tender To Palpation, No Loose, No Avulsed Gingiva: Normal Appearing, No Erythema, No Swelling Throat: Normal, No Erythema, No Exudate, No Drooling, No Mass Neck: Normal ROM Chest: Symmetrical Extremity: Bilateral: Atraumatic, Normal Color And Temperature, Normal ROM Neurological/Psych: Oriented x3, Normal Speech Gait: Steady ED Course And Treatment O2 Sat by Pulse Oximetry: 100 (RA) Pulse Ox Interpretation: Normal Medical Decision Making Medical Decision Making: Patient with left sided TMJ pain, no trauma or injury to area, and no signs of acute dislocation, fracture, or abnormality. Patient has no trismus or swelling to face. Recommend Ibuprofen and to follow up with dentist Disposition Counseled Patient/Family Regarding: Diagnosis, Need For Followup, Rx Given - Disposition Referrals: [facility] [Outside] Disposition: HOME/ ROUTINE Disposition Time: 12:14 Condition: STABLE Additional Instructions: Please follow up with Dentist and TMJ specialist if pain persists Take Ibuprofen for pain as needed Prescriptions: Ibuprofen [Motrin] 600 mg PO Q8 #30 tab Instructions: Temporomandibular Joint (TMJ) Disorders (DC) Forms: [facility] (Lithuanian), Work Excuse - POA Present On Arrival: None - Clinical Impression Clinical Impression: TMJ (sprain of temporomandibular joint) - PA / BUS INSPECTOR / Resident Statement MD/DO has reviewed & agrees with the documentation as recorded. - Scribe Statement The provider has reviewed the documentation as recorded by the Lory Tinsley Provider Attestation All medical record entries made by the Lory were at my direction and personally dictated by me. I have reviewed the chart and agree that the record accurately reflects my personal performance of the history, physical exam, medical decision making, and the department course for this patient. I have also personally directed, reviewed, and agree with the discharge instructions and disposition.
== END 2018-06-17 12:23 | disposition home or self-care (01) ==
LOC: C.ER 11:29
DX: S03.42XA Sprain of jaw, left side, initial encounter (principal); X58.XXXA Exposure to other specified factors, initial encounter

== ENCOUNTER 2018-09-03 00:13 | Emergency (ER) | payer SELFPAY ==
[2018-09-03 00:14] VITALS: BMI 32.3
[2018-09-03 00:55] LABS: SQUAMOUS EPITHIAL 1 /hpf (0-5); URINE BACTERIA RARE (<OCC); URINE BILIRUBIN NEGATIVE (NEGATIVE); URINE BLOOD 3+ (NEGATIVE); URINE CLARITY Hazy (Clear); URINE COLOR Yellow (YELLOW); URINE GLUCOSE (UA) NORMAL (Normal); URINE LEUKOCYTE ESTERASE 2+ Leu/uL (Negative); URINE PROTEIN 2+ mg/dL (NEGATIVE); URINE UROBILINOGEN NORMAL mg/dL (0.2-1.0)
[2018-09-03 00:59] LABS: HCG,QUALITATIVE URINE NEGATIVE (NEGATIVE)
--- NOTE | 2018-09-03 01:08 | C.PDOC ---
History Of Present Illness 28 y/o female presents to the ED for evaluation of pain on urination developing since this morning. Patient states she also noticed some blood in the urine today. Otherwise she denies any fever, chills, sore throat, CP, SOB, dyspnea, abdominal pain, N/V/D, or back pain, vaginal irritation or discharge. LMP was 08/25/18. Patient reports having similar symptoms in the past, for which she was treated for a UTI. On arrival, she is ambulatory in the ED, in no apparent distress. Time Seen by Provider: 09/03/18 00:18 Chief Complaint (Nursing): Female Genitourinary History Per: Patient History/Exam Limitations: no limitations Onset/Duration Of Symptoms: Hrs Current Symptoms Are (Timing): Still Present Quality Of Discomfort: Cramping Associated Symptoms: Urinary Symptoms Past Medical History Reviewed: Historical Data, Nursing Documentation, Vital Signs Vital Signs: Last Vital Signs Temp 98.2 F 09/03/18 00:35 Pulse 100 H 09/03/18 00:35 Resp 20 09/03/18 00:35 BP 134/84 09/03/18 00:35 Pulse Ox 99 09/03/18 00:35 Surgical History: Hernia Repair - [facility] Procedures DELIVERY OF PRODUCTS OF CONCEPTION, EXTERNAL APPROACH (02/19/17) DIVISION OF FEMALE PERINEUM, EXTERNAL APPROACH (08/08/15) INTRODUCTION OF SERUM/TOX/VACCINE INTO MUSCLE, PERC APPROACH (08/08/15) REPAIR PERINEUM MUSCLE, OPEN APPROACH (08/08/15) REPAIR PERINEUM SKIN, EXTERNAL APPROACH (02/19/17) Family History: States: Unknown Family Hx - Social History Hx Tobacco Use: No Hx Alcohol Use: No Hx Substance Use: No - Immunization History Hx Tetanus Toxoid Vaccination: No Hx Influenza Vaccination: Yes Hx Pneumococcal Vaccination: No Review Of Systems Except As Marked, All Systems Reviewed And Found Negative. Constitutional: Negative for: Fever, Chills Gastrointestinal: Negative for: Vomiting, Abdominal Pain, Diarrhea Genitourinary: Positive for: Dysuria, Hematuria. Negative for: Vaginal Discharge, Vaginal Bleeding Musculoskeletal: Negative for: Back Pain Physical Exam - Physical Exam Appears: Well, Non-toxic, No Acute Distress Skin: Normal Color, Warm, No Rash Head: Normacephalic Eye(s): bilateral: PERRL Nose: No Flaring Oral Mucosa: Moist Throat: No Erythema Neck: Supple Cardiovascular: Rhythm Regular, No Murmur, No JVD Respiratory: No Decreased Breath Sounds, No Accessory Muscle Use, No Rales, No Stridor, No Wheezing Gastrointestinal/Abdominal: Soft, Tenderness (suprapubic, mild), No Distention, No Guarding, No Rebound Back: No CVA Tenderness Extremity: Normal ROM, No Swelling Extremity: Bilateral: Atraumatic, Normal Color And Temperature Neurological/Psych: Oriented x3, Normal Speech ED Course And Treatment - Laboratory Results Urine POC: Negative O2 Sat by Pulse Oximetry: 99 (RA) Pulse Ox Interpretation: Normal Progress Note: UA and urine culture sent. Administered initial dose of macrobid and pyridium. On re-eval, pt is afebrile, hemodynamicaly stable. Non-toxic. Tolerate Po well in ED. Neck: SUpple, (-) JVD. ENT: no acute findings. Lungs: CTA B/L, BS equal B/L. Abd: benign, (-) guarding, (-) rebound. Back: (-) CVA tenderness. UA results review and c/w UTI. Preg (-). UCx- pending. Macrobid given. Pt advised on course of ds. ref. to f/u with PMD, LABORATORY PHLEBOTOMIST in 2-3 days for re-eavl. Disposition Counseled Patient/Family Regarding: Studies Performed, Diagnosis, Need For Followup, Rx Given - [facility] Disposition: HOME/ ROUTINE Disposition Time: 01:05 Condition: STABLE Additional Instructions: Encourage fluids Take medication as prescribed Return to ED if no improvement in 2 days or at any time if any worsening or new changes Otherwise, Follow up with PMD, LABORATORY PHLEBOTOMIST in 2-3 days for re-evaluation. Prescriptions: Cranberry 500 mg PO BID #20 capsule Nitrofurantoin Macrocrystals [Macrobid] 1 cap PO BID #14 cap Phenazopyridine [Phenazopyridine HCl] 200 mg PO Q12 #6 tab Instructions: Urinary Tract Infection, Adult (DC) Forms: [employer] (Mongolian) - Clinical Impression Clinical Impression: UTI (urinary tract infection) - PA / TRANSPORTATION CLERK / Resident Statement MD/DO has reviewed & agrees with the documentation as recorded. - Scribe Statement The provider has reviewed the documentation as recorded by the Scribe (Willow Gallegos) All medical record entries made by the Scribe were at my direction and personally dictated by me. I have reviewed the chart and agree that the record accurately reflects my personal performance of the history, physical exam, medical decision making, and the department course for this patient. I have also personally directed, reviewed, and agree with the discharge instructions and disposition.
[2018-09-03 01:54] VITALS: BP 119/89; PULSE 87; RESP 18; TEMP 98; O2SAT 100
== END 2018-09-03 02:24 | disposition home or self-care (01) ==
LOC: C.ER 00:13
DX: N39.0 Urinary tract infection, site not specified (principal)